=== PATIENT | female | born 1995 | race Caucasian/White ===

== ENCOUNTER 2017-02-13 21:02 | Emergency (ER) | payer BC ==
[2017-02-13] MEDS ORDERED: SODIUM CHLORIDE 0.9% 1,000 ML IV ONE (22:21)
[2017-02-13] MEDS ORDERED: PYRIDOXINE 100 MG/ML 1 ML VIAL IVP STA (22:23)
--- NOTE | 2017-02-13 22:28 | ED ---
Nausea/Vomiting/Diarrhea HPI - General Chief complaint: Nausea/Vomiting/Diarrhea Stated complaint: Nausea. 10 wks preg Time Seen by Provider: 02/13/17 21:16 Source: patient, family Mode of arrival: ambulatory Limitations: no limitations - History of Present Illness Initial comments: This patient is a 22-year-old woman who presents to be evaluated for multiple rounds of vomiting and nausea that is been going on the course of past. The patient relates that she is proximally 10 weeks now, and that over the course the past day she has not been able to keep down much in way of oral intake and this evening and tonight she has not been able keep down any fluids. Patient denies fever or chills. She denies any abdominal pain or change in bowel movements. Patient is not having any pelvic pain, vaginal bleeding or vaginal discharge. On the review of systems the patient does note some mild upper respiratory symptoms, including a mild nonproductive cough that is been going on for nearly past week. MD complaint: nausea, vomiting Onset/Timin -: days(s) Description of Vomiting: food contents Associated Abdominal Pain: No Consistency: constant Improves with: none Worsens with: none - Related Data Home Medications Medication Instructions Recorded Confirmed Bbw-Modq-Kyxff Acid 1 cap PO DAILY 02/13/17 02/13/17 [-U Capsule (formulary)] Allergies Allergy/AdvReac Type Severity Reaction Status Date / Time benzoyl peroxide Allergy Swelling/It Verified 02/13/17 21:30 tomi Review of Systems ROS Statement: Those systems with pertinent positive or pertinent negative responses have been documented in the HPI. ROS Other: All systems not noted in ROS Statement are negative. Constitutional: Denies: fever, chills, weakness Respiratory: Reports: cough (Mild nonproductive). Denies: dyspnea, wheezes Cardiovascular: Denies: chest pain, palpitations, edema, syncope Gastrointestinal: Reports: nausea, vomiting. Denies: abdominal pain, diarrhea, constipation Genitourinary: Denies: dysuria, hematuria, discharge, abnormal menses Musculoskeletal: Denies: back pain Skin: Denies: rash Neurological: Denies: headache, weakness, numbness Past Medical History Past Medical History: No Reported History History of Any Multi-Drug Resistant Organisms: None Reported Past Surgical History: No Surgical Hx Reported Past Psychological History: No Psychological Hx Reported Smoking Status: Never smoker Past Alcohol Use History: None Reported Past Drug Use History: None Reported General Exam Limitations: no limitations General appearance: alert, in no apparent distress Head exam: Present: atraumatic, normocephalic Eye exam: Present: normal appearance. Absent: scleral icterus, conjunctival injection ENT exam: Present: normal oropharynx Neck exam: Present: normal inspection, full ROM Respiratory exam: Present: normal lung sounds bilaterally. Absent: respiratory distress, wheezes, rales, rhonchi Cardiovascular Exam: Present: regular rate, normal rhythm, normal heart sounds. Absent: systolic murmur, diastolic murmur, rubs, gallop GI/Abdominal exam: Present: soft. Absent: distended, tenderness, guarding, rebound, mass Extremities exam: Present: normal inspection, normal capillary refill. Absent: pedal edema, calf tenderness Back exam: Present: normal inspection. Absent: CVA tenderness (R), CVA tenderness (L) Neurological exam: Present: alert Skin exam: Present: warm, dry, intact, normal color. Absent: rash, cyanosis, diaphoretic, erythema, petechiae, pallor, mottled Course Vital Signs 02/13/17 21:06 Temperature 99 F Pulse Rate 100 Respiratory 20 Rate Blood Pressure 129/88 O2 Sat by Pulse 99 Oximetry Medical Decision Making - Lab Data Lab Results 02/13/17 Range/Units 22:38 Urine Color Yellow Urine Appearance Cloudy H (Clear) Urine pH 5.5 (5.0-8.0) Ur Specific [place] 1.022 (1.001-1.035) Urine Protein Trace H (Negative) Urine Glucose (UA) Negative (Negative) Urine Ketones 2+ H (Negative) Urine Blood Negative (Negative) Urine Nitrite Negative (Negative) Urine Bilirubin Negative (Negative) Urine Urobilinogen <2.0 (<2.0) mg/dL Ur Leukocyte Esterase Trace H (Negative) Urine RBC 1 (0-5) /hpf Urine WBC 2 (0-5) /hpf Ur Squamous Epith Cells 10 H (0-4) /hpf Urine Mucus Many H (None) /hpf Disposition Clinical Impression: Vomiting affecting Disposition: HOME SELF-CARE Condition: Good Instructions: Acute Nausea and Vomiting (ED) Referrals: Aleksandr Case MD [Primary Care Provider] - 1-2 days
[2017-02-13 23:00] LABS: Appearance,Urine Cloudy (Clear); Bilirubin,Urine Negative (Negative); Glucose,Urine (UA) Negative (Negative); Ketones,Urine 2+ (Negative); Leukocyte Esterase,Urine Trace (Negative); Mucus,Urine Many /hpf; Nitrite,Urine Negative (Negative); PH, Urine 5.5 (5.0-8.0); Particle Count 13243; Protein,Urine Trace (Negative); RBC,Urine 1 /hpf (0-5); Specific Gravity,Urine 1.022 (1.001-1.035); Squamous Epithelial Cell,Urine 10 /hpf (0-4); UA Billing (MACRO vs. MICRO) MICRO; Urobilinogen,Urine <2.0 mg/dL (<2.0); WBC,Urine 2 /hpf (0-5)
[2017-02-14 00:10] VITALS: BP 111/56; PULSE 78; RESP 18; TEMP 98
== END 2017-02-14 00:10 | disposition home or self-care (01) ==
LOC: EC 21:02
DX: O21.9 Vomiting of pregnancy, unspecified (principal); O26.899 Other specified pregnancy related conditions, unspecified trimester; R05 Cough; Z79.899 Other long term (current) drug therapy; Z88.8 Allergy status to other drugs, medicaments and biological substances; Z3A.00 Weeks of gestation of pregnancy not specified
CPT/HCPCS: 99284 ×2; 96374 ×2; 96361 ×2; 81001; J3415

== ENCOUNTER 2017-08-21 02:46 | Inpatient (IN) | payer OTHER ==
[2017-08-21] MEDS ORDERED: LIDOCAINE 1% (PF) 10 MG/ML (30 ML SDV) SQ PRN (03:06)
[2017-08-21] MEDS ORDERED: OXYTOCIN 10 UNIT/ML 1 ML VIAL IM PRN (03:06)
[2017-08-21] MEDS ORDERED: METHYLERGONOVINE 0.2 MG/ML 1 ML AMP IM PRN (03:06)
[2017-08-21] MEDS ORDERED: CARBOPROST TROMETHAMINE 250 MCG/ML 1 ML AMP IM PRN (03:06)
[2017-08-21] MEDS ORDERED: TERBUTALINE 1 MG/ML VIAL SQ PRN (03:06)
[2017-08-21] MEDS ORDERED: OXYTOCIN 20 UNITS/1000 ML NS 1,000 ML IV SCH (03:15)
[2017-08-21] MEDS: LACTATED RINGERS 1,000 ML IV SCH ×2 (03:25→07:11)
[2017-08-21] MEDS ORDERED: BUTORPHANOL 1 MG/ML 1 ML VIAL IV PRN (03:34)
[2017-08-21 03:49] VITALS: BMI 25.3
[2017-08-21 04:30] LABS: Basophils # (A) 0.1 k/uL (0-0.2); Basophils % (A) 0 %; Eosinophils # (A) 0.2 k/uL (0-0.7); Eosinophils % (A) 1 %; HCT 33.6 % (34.0-46.0); HGB 11.3 gm/dL (11.4-16.0); Lymphocytes # (A) 2.4 k/uL (1.0-4.8); Lymphocytes % (A) 21 %; MCH 26.9 pg (25.0-35.0); MCHC 33.5 g/dL (31.0-37.0); MCV 80.4 fL (80.0-100.0); Mean Platelet Volume 7.9; Monocytes # (A) 0.9 k/uL (0-1.0); Monocytes % (A) 8 %; Neutrophils # (A) 7.6 k/uL (1.3-7.7); Neutrophils % (A) 67 %; Platelet Count 277 k/uL (150-450); RBC 4.18 m/uL (3.80-5.40); RDW 13.6 % (11.5-15.5); WBC 11.4 k/uL (3.8-10.6)
[2017-08-21] MEDS ORDERED: SODIUM CHLORIDE 0.9% 100 ML BAG ONE (06:50)
[2017-08-21] MEDS ORDERED: BUPIVACAINE (PF) 0.25% 30 ML VIAL ONE (06:50)
[2017-08-21] MEDS ORDERED: fentaNYL (PF) 50 MCG/ML 5 ML AMP ONE (06:50)
--- NOTE | 2017-08-21 09:42 | P.HPOB ---
History of Present Illness H&P Date: 08/21/17 Chief Complaint: My water broke at 2 AM This is a 22-year-old white female 1 para 0 EDC 09/07/2017 at 37-4/7 weeks' gestation. Patient presented to the hospital with complaint of her water breaking spontaneously at 2:00 this morning, clear fluid. Mild irregular uterine contractions to follow. is essentially unremarkable. She denies vaginal bleeding or fluid leakage. history significant for rubella status immune, blood type O+, group be strep cultures negative, gonorrhea and chlamydia cultures, urine culture, HIV testing, hepatitis B surface antigen all negative. One-hour Glucola 97. Past medical history is essentially unremarkable. Past surgical history negative. Medications vitamins daily. ALLERGIES include benzoyl peroxide to which reports itching and swelling. Family history is essentially negative. Social history: patient is , she has never been a smoker, she denies alcohol or drug use. On exam this is a pleasant white female, 5 foot 7 inches, 162 pounds, initial blood pressure 132/79, vital signs are stable and she is afebrile. The general physical exam is within normal limits. The cervix on admission is 3 cm dilated , 70% effaced, spontaneous amniorrhexis noted, vertex presentation, anterior, - 2 station. heart rate in the 140s with frequent accelerations consistent with reactive NST. Impression: 37-4/7 weeks intrauterine , early active labor. All signs reassuring. Plan: Oxytocin per hospital protocol. Analgesic options are offered to the patient per her request. Close maternal and surveillance. Anticipate normal spontaneous vaginal delivery. Review of Systems Negative except as in HPI Past Medical History Past Medical History: No Reported History History of Any Multi-Drug Resistant Organisms: None Reported Past Surgical History: No Surgical Hx Reported Past Anesthesia/Blood Transfusion Reactions: No Reported Reaction Past Psychological History: No Psychological Hx Reported Smoking Status: Never smoker Past Alcohol Use History: None Reported Past Drug Use History: None Reported - Past Family History Mother Family Medical History: No Reported History Medications and Allergies Home Medications Medication Instructions Recorded Confirmed Type Dup-Ntdb-Sfehp Acid 1 cap PO DAILY 02/13/17 08/21/17 History [-U Capsule (formulary)] Allergies Allergy/AdvReac Type Severity Reaction Status Date / Time benzoyl peroxide Allergy Swelling/It Verified 08/21/17 02:48 tomi Exam - Vital Signs Vital signs: Vital Signs Temp Pulse Resp BP 08/21/17 03:05 97.9 F 94 16 132/89 Intake and Output 08/20/17 08/21/17 08/21/17 22:59 06:59 14:59 Other: # Voids 1 Weight 73.482 kg See dictation under HPI please Results Result Diagrams: 08/21/17 03:30 Abnormal Lab Results - Last 24 Hours (Table) 08/21/17 Range/Units 03:30 WBC 11.4 H (3.8-10.6) k/uL Hgb 11.3 L (11.4-16.0) gm/dL Hct 33.6 L (34.0-46.0) % Assessment and Plan Plan: Oxytocin augmentation per hospital protocol. Continue close maternal and surveillance. Anticipate normal spontaneous vaginal delivery. Time with Patient: Less than 30
[2017-08-21] MEDS ORDERED: diphenhydrAMINE 50 MG/ML 1 ML VIAL IVP PRN ×2 (09:45)
[2017-08-21] MEDS ORDERED: LANOLIN CREAM 5 GM TUBE TOPICAL PRN (09:45)
[2017-08-21] MEDS ORDERED: SIMETHICONE 80 MG CHEWABLE PO PRN (09:45)
[2017-08-21] MEDS ORDERED: Acetaminophen-Codeine 300-30mg TAB PO PRN (09:45)
[2017-08-21] MEDS ORDERED: BENZOCAINE/MENTHOL SPRAY 1 GM/SPRAY AEROSOL TOPICAL PRN (09:45)
[2017-08-21] MEDS ORDERED: ZOLPIDEM 5 MG TAB PO PRN (09:45)
[2017-08-21] MEDS ORDERED: IBUPROFEN 600 MG TAB PO PRN (09:45)
[2017-08-21] MEDS ORDERED: WITCH HAZEL 1 EACH MED..PAD TOPICAL PRN (09:45)
[2017-08-21] MEDS ORDERED: HYDROCORTISONE 2.5% RECTAL CREAM 30 GM TUBE RECTAL PRN (09:45)
[2017-08-21] MEDS ORDERED: diphenhydrAMINE 25 MG CAP PO PRN (09:45)
[2017-08-21] MEDS ORDERED: ACETAMINOPHEN TAB 325 MG TAB PO PRN (09:45)
[2017-08-21] MEDS ORDERED: diphenhydrAMINE 50 MG CAP PO PRN (09:45)
--- NOTE | 2017-08-21 09:45 | P.PROBDLV ---
Vaginal Delivery Note - . Vaginal Delivery Note: This is a 22-year-old white female 1 para 0 EDC 09/07/2017 at 37-4/7 weeks' gestation. Patient presented to labor and delivery with a history of spontaneous amniorrhexis which occurred at home, clear fluid. is unremarkable, please see dictated history and physical for details. On admission patient was 3 cm dilated with spontaneous amniorrhexis noted. Oxytocin was started and titrated per hospital protocol. She progressed well through the first stage of labor, became uncomfortable and requested epidural. This was placed without difficulty per the anesthesia staff. Patient continued to labor and was judged to be completely dilated at 0850 hours. She began the second stage of labor at that time. With excellent maternal expulsive efforts ultimately the perineal body was prepped and draped in the usual sterile fashion, in the infant's head delivered occiput anterior. He restituted accordingly. There was no nuchal cord noted. The right or anterior shoulder was gently and easily delivered from underneath the pubic symphysis at which time the oropharynx, nasopharynx, and external nares were all bulb suctioned on the perineal body. Patient was officially delivered of a liveborn male infant at 0920 hours. The umbilical cord was doubly clamped and ligated, he was handed to waiting nurses for evaluation where scores of 8 and 9 at one and 5 minutes respectively were given. The placenta delivered spontaneously, it was inspected and noted to be intact with trivascular cord. It is appeared heart-shaped to inspection, but no missing cotyledons were noted. At this time the perineal body was redraped. Inspection of the cervix, vagina, perineal, periurethral and perirectal areas revealed a small first-degree perineal laceration. This was easily repaired in the usual fashion with a mewrwt-pm-yliuq suture of 3-0 Vicryl. Fundus is firm and in the midline, symmetric and 18 week size. Total estimated blood loss 300 mL's. Infant weighs 7 lbs. 10 oz. or 34 60 g. They are requesting circumcision further son.
[2017-08-21] MEDS: SENNOSIDES-DOCUSATE SODIUM 1 EACH TAB PO SCH (20:35)
[2017-08-22] MEDS: SENNOSIDES-DOCUSATE SODIUM 1 EACH TAB PO SCH (08:00)
--- NOTE | 2017-08-22 08:03 | P.DS ---
Providers Date of admission: 08/21/17 03:03 Expected date of discharge: 08/22/17 Attending physician: Connie Mariano [facility] Course: This is a 23-year-old white female 1 para 0 EDC 09/07/2017 at 37-4/7 weeks' gestation. Patient presented with spontaneous amniorrhexis which occurred at home, clear fluid. is essentially unremarkable, group B strep cultures negative, rubella status immune, blood type O positive. Please see my dictated history and physical for details. Oxytocin augmentation was started and epidural was placed per her request. She went on to deliver a liveborn male with scores of 8 and 9 at one and 5 minutes respectively. Infant weighed 7 lbs. 10 oz. or 3460 g. She did well with a small first-degree perineal laceration easily repaired, estimated blood loss 300 mL's. Please see my dictated delivery note for details. This morning the patient is doing well. She is voiding, ambulating and passing flatus without difficulty. Vital signs are stable and she is afebrile. Breast- feeding is going well. [place] circumcision has been performed. Fundus is firm and in the midline, symmetric and 18 week size. Pain is well managed with ibuprofen. Patient is being discharged home today in very good condition. She will follow- up with me in the office in 6 weeks. I have reminded her no intercourse, tampons or douching. We have briefly discussed options for contraception and we will review this further in the office. She will continue taking her vitamin daily, and use vwnt-uwu-brbkqyl ibuprofen products as needed for pain. She will call me with any fevers shakes or chills, foul smelling or copious lochia, with the passage of large blood clots, with any pain not alleviated by bqss-ads-hdonhyc meds, or indeed with any concerns. will follow-up with crew dispatcher as per recommendations.` Patient Condition at Discharge: Good Plan - Discharge Summary New Discharge Prescriptions: No Action Adi-Zqnf-Cbsvx Acid [-U Capsule (formulary)] 1 cap PO DAILY Discharge Medication List Dwf-Cqce-Ujjpz Acid [-U Capsule (formulary)] 1 cap PO DAILY 06/01 [History] Follow up Appointment(s)/Referral(s): Connie Mariano MD [Primary Care Provider] - 6 Weeks Discharge Disposition: HOME SELF-CARE
[2017-08-22 10:13] VITALS: BP 124/79; PULSE 88; RESP 18; TEMP 98.1
== END 2017-08-22 13:00 | disposition home or self-care (01) | DRG 775 ==
LOC: FBPOP 02:46 → 4FBP 03:03
PROVIDERS: ADMIT Obstetrics & Gynecology; ATTEND Obstetrics & Gynecology
PROC: 10E0XZZ Delivery of Products of Conception, External Approach (ICD-10-PCS; principal; 2017-08-21)
PROC: 0HQ9XZZ Repair Perineum Skin, External Approach (ICD-10-PCS; 2017-08-21)
PROC: 00HU33Z Insertion of Infusion Device into Spinal Canal, Percutaneous Approach (ICD-10-PCS; 2017-08-21)
PROC: 3E0R3NZ Introduction of Analgesics, Hypnotics, Sedatives into Spinal Canal, Percutaneous Approach (ICD-10-PCS; 2017-08-21)
DX: O70.0 First degree perineal laceration during delivery (principal); Z37.0 Single live birth; Z3A.37 37 weeks gestation of pregnancy; Z88.8 Allergy status to other drugs, medicaments and biological substances
CPT/HCPCS: 59025; 84112; 85025; 88307; 99213

== ENCOUNTER 2019-03-19 22:22 | Outpatient (CLI) | payer OTHER ==
[2019-03-20 00:17] VITALS: BP 129/86; PULSE 103; RESP 16; TEMP 96.3
--- NOTE | 2019-03-22 14:29 | P.MSEPDOC ---
Presenting Problems - Arrival Data Date of Arrival on Unit: 03/20/19 Time of Arrival on Unit: 22:22 Mode of Transport: Ambulatory - Complaint OB-Reason for Admission/Chief Complaint: Possible Onset of Labor Comment: Pt states contractions for the past few days, 6 minutes apart, pain 4/10. Medical History - Information : 2 Para: 1 Term: 1 : 0 Abortions: Spontaneous or Elective: 0 Number of Living Children: 1 - Gestational Age Gestational Age by EDWARD (wks/days): 36 Weeks and 4 Days - History Complications: No Care Review of Systems - Review of Systems Constitutional: No problems Breast: No problems ENT: No problems Cardiovascular: No problems Respiratory: No problems Gastrointestinal: No problems Genitourinary: No problems Musculoskeletal: No problems Neurological: No problems Skin: No problems Vital Signs - Temperature Temperature: 96.3 F Temperature Source: Temporal Artery Scan - Pulse Right Brachial Pulse Rate: 103 Pulse Assessment Method: Automatic Cuff - Respirations Respiratory Rate: 16 Oxygen Delivery Method: Room Air O2 Sat by Pulse Oximetry: 99 - Blood Pressure Right Arm Blood Pressure: 129/86 Blood Pressure Mean: 100 Blood Pressure Source: Automatic Cuff Medical Screen Scoring (Pre) - Cervical Exam Dilation: 1-3 cm = 1 Effacement: Exam Deferred Membranes: Intact - Uterine Contractions Frequency: > or = 36 weeks =2 Duration: > 40 seconds = 2 Intensity: N/A - Maternal Vital Signs Maternal Temperature: N/A Signs of Preeclampsia: N/A Maternal Respirations: N/A - Maternal Trauma Maternal Trauma: N/A - Assessment - Baby A Baseline FHR: 135 Heart Rate - NICHD Category: Category I (Normal) = 0 NST: Reactive Position: N/A Station: N/A - Total Score - Baby A Total Score - Baby A: 5 - Total Score - Baby B Total Score - Baby B: 5 - Total Score - Baby C Total Score - Baby C: 5 - Level of Risk - Baby A Level of Risk - Baby A: Low (0-5) - Level of Risk - Baby B Level of Risk - Baby B: Low (0-5) - Level of Risk - Baby C Level of Risk - Baby C: Low (0-5) Physician Notification (Pre) - Physician Notified Physician Notified Date: 03/20/19 Physician Notified Time: 23:52 - Notification Comment Comment: No cervical change, irregular contractions, pt to follow up with Dr. Mariano 03/22 Disposition - Disposition OB Disposition: Discharge to home, Written follow up instructions reviewed Discharge Date: 03/20/19 Discharge Time: 23:55 I agree with the RN Medical Screening Exam: Yes Risk & Benefit of care provided described in d/c instruction: Yes Diagnosis: FALSE LABOR BEFORE 37 COMPLETED WEEKS OF GEST, THIRD TRI
== END 2019-03-19 23:55 | disposition home or self-care (01) ==
LOC: FBPOP 22:22
PROVIDERS: ATTEND Obstetrics & Gynecology Obstetrics
DX: O47.03 False labor before 37 completed weeks of gestation, third trimester (principal); Z3A.36 36 weeks gestation of pregnancy
CPT/HCPCS: 59025; 99213

== ENCOUNTER 2019-04-03 07:23 | Inpatient (IN) | payer BC, OTHER ==
[2019-04-03] MEDS ORDERED: LIDOCAINE 0.5% (PF) 5 MG/ML (50 ML SDV) SQ PRN (08:03)
[2019-04-03] MEDS ORDERED: METHYLERGONOVINE 0.2 MG/ML 1 ML AMP IM PRN (08:03)
[2019-04-03] MEDS ORDERED: OXYTOCIN 10 UNIT/ML 1 ML VIAL IM PRN (08:03)
[2019-04-03] MEDS ORDERED: CARBOPROST TROMETHAMINE 250 MCG/ML 1 ML AMP IM PRN (08:03)
[2019-04-03] MEDS ORDERED: TERBUTALINE 1 MG/ML VIAL SQ PRN (08:03)
[2019-04-03] MEDS ORDERED: OXYTOCIN 30 UNITS/500 ML NS 30 UNIT in SALINE 1 500ML.BAG IV SCH (08:15)
[2019-04-03 08:30] LABS: Basophils # (A) 0.1 k/uL (0-0.2); Basophils % (A) 1 %; Eosinophils # (A) 0.1 k/uL (0-0.7); Eosinophils % (A) 1 %; HCT 33.9 % (34.0-46.0); HGB 11.3 gm/dL (11.4-16.0); Lymphocytes # (A) 1.9 k/uL (1.0-4.8); Lymphocytes % (A) 24 %; MCH 26.6 pg (25.0-35.0); MCHC 33.3 g/dL (31.0-37.0); MCV 79.9 fL (80.0-100.0); Mean Platelet Volume 7.5; Monocytes # (A) 0.5 k/uL (0-1.0); Monocytes % (A) 6 %; Neutrophils # (A) 5.3 k/uL (1.3-7.7); Neutrophils % (A) 67 %; Platelet Count 238 k/uL (150-450); RBC 4.25 m/uL (3.80-5.40); RDW 13.9 % (11.5-15.5)
[2019-04-03] MEDS ORDERED: ROPIVACAINE 5MG/ML 20ML VIAL ONE (08:34)
[2019-04-03] MEDS ORDERED: fentaNYL (PF) 50 MCG/ML 5 ML AMP ONE (08:34)
[2019-04-03] MEDS ORDERED: SODIUM CHLORIDE 0.9% 100 ML BAG ONE (08:34)
--- NOTE | 2019-04-03 08:40 | P.HPOB ---
History of Present Illness H&P Date: 04/03/19 Chief Complaint: Strong regular uterine contractions This is a 24-year-old white female 2 para 1001 EDC 04/13/2019 at 38-4/7 weeks' gestation. Patient presents from home with strong regular uterine contractions. She denies fluid leakage or vaginal bleeding. Fetus is been active throughout the . ALLERGIES include benzoyl peroxide to which she reports itching and swelling locally. history significant for blood type O+, rubella status immune. VDRL testing, hepatitis B surface antigen, HIV testing, group B strep cultures all negative. One-hour Glucola 83. Urine culture negative. Past medical history is essentially unremarkable. Past surgical history is negative. Current medications Colace as needed, Zofran 4 mg oral tablets as needed, vitamins daily. Family history significant for ovarian cancer in a maternal aunt. Reproductive history normal spontaneous vaginal delivery for 818 at 37 weeks gestation, 7 lbs. 10 oz. male infant. Social history patient is , she has never been a smoker, she denies alcohol or drug use. On exam this is a pleasant white female who is 5 foot 7-1/2 inches, 165 pounds, vital signs are stable including in latent blood pressure 124/78, pulse 83, respirations 18, temperature 97.8. The chest is clear in all fu. The extremities reveal no edema. The cervix is 7 centimeters dilated, 90% effaced, -1 station, vertex presentation. Artificial amniorrhexis reveals clear fluid. heart tones are consistent with reactive NST. Impression: 38-4/7 weeks intrauterine , active spontaneous labor. All signs reassuring. Plan: Patient is requesting epidural and the anesthesia team is aware. Continue close maternal and surveillance. Anticipate normal spontaneous vaginal delivery. Review of Systems Constitutional: Reports as per HPI Past Medical History Past Medical History: No Reported History History of Any Multi-Drug Resistant Organisms: None Reported Past Surgical History: No Surgical Hx Reported Past Anesthesia/Blood Transfusion Reactions: No Reported Reaction Smoking Status: Never smoker - Past Family History Mother Family Medical History: No Reported History Medications and Allergies Home Medications Medication Instructions Recorded Confirmed Type Ywl-Jgob-Hyewk Acid 1 cap PO DAILY 02/13/17 04/03/19 History [-U Capsule (formulary)] Allergies Allergy/AdvReac Type Severity Reaction Status Date / Time benzoyl peroxide Allergy Swelling/It Verified 03/19/19 22:33 tomi Exam Intake and Output 04/02/19 04/03/19 04/03/19 22:59 06:59 14:59 Other: Weight 77.111 kg See dictation under HPI please Results Result Diagrams: 04/03/19 08:10 Abnormal Lab Results - Last 24 Hours (Table) 04/03/19 Range/Units 08:10 Hgb 11.3 L (11.4-16.0) gm/dL Hct 33.9 L (34.0-46.0) % MCV 79.9 L (80.0-100.0) fL Assessment and Plan Assessment: 38-4/7 weeks intrauterine , active spontaneous labor. All signs r eassuring. Group strep cultures negative. Plan: Epidural has been ordered and will be placed. Continue close maternal and surveillance. Anticipate normal spontaneous vaginal delivery. Time with Patient: Less than 30
[2019-04-03] MEDS: LACTATED RINGERS 1,000 ML IV SCH ×2 (08:58→08:59)
[2019-04-03 09:28] VITALS: BMI 26.6
--- NOTE | 2019-04-03 10:23 | P.PROBDLV ---
Vaginal Delivery Note - . Vaginal Delivery Note: This is a 24-year-old white female 2 para 1001 EDC 04/13/2019 at 38-4/7 weeks' gestation. Patient presented in spontaneous active labor from home. Fetus has been active throughout the . is otherwise unremarkable, blood type O+, group B strep cultures negative, rubella status immune. Please see my dictated history and physical for details. Artificial amniorrhexis revealed clear fluid. Epidural was placed per the patient's request. She progressed well through the first stage of labor was judged to be completely dilated at 1001 hours. Perineal body was prepped and draped in usual sterile fashion. With excellent maternal expulsive efforts the 's head delivered occiput anterior and he restituted accordingly. There was no nuchal cord noted. The left or anterior shoulder was gently delivered from underneath the pubic symphysis at which time the oropharynx, nasopharynx, and external nares were bulb suctioned on the perineal body. Patient was officially delivered of a liveborn male at 1005 hours. Umbilical cord was doubly clamped and ligated, he was handed to waiting nurses for evaluation where scores of 8 and 9 at one and 5 minutes respectively were given. The placenta delivered spontaneously, it was inspected and noted to be intact with trivascular cord at 1008 hours. Uterus is massaged, is firm and midline, 18 week size. Careful inspection now of the perineal body, cervix, vagina, periurethral, and perirectal areas reveals no lacerations and no defects. weighs 8 lbs. 13 oz. or 4005 g. The patient and her are requesting circumcision further son. Total estimated blood loss 250 mL's. All sponge needle and instrument counts are correct at the end of this procedure. Patient and her family are allowed to begin the bonding experience in the LDR.
[2019-04-03] MEDS ORDERED: ZOLPIDEM 5 MG TAB PO PRN (10:24)
[2019-04-03] MEDS ORDERED: HYDROCORTISONE 2.5% RECTAL CREAM 30 GM TUBE RECTAL PRN (10:24)
[2019-04-03] MEDS ORDERED: ACETAMINOPHEN TAB 325 MG TAB PO PRN (10:24)
[2019-04-03] MEDS ORDERED: diphenhydrAMINE 50 MG/ML 1 ML VIAL IVP PRN ×2 (10:24)
[2019-04-03] MEDS ORDERED: BENZOCAINE/MENTHOL SPRAY 1 GM/SPRAY AEROSOL TOPICAL PRN (10:24)
[2019-04-03] MEDS ORDERED: SIMETHICONE 80 MG CHEWABLE PO PRN (10:24)
[2019-04-03] MEDS ORDERED: LANOLIN CREAM 5 GM TUBE TOPICAL PRN (10:24)
[2019-04-03] MEDS ORDERED: diphenhydrAMINE 50 MG CAP PO PRN (10:24)
[2019-04-03] MEDS ORDERED: diphenhydrAMINE 25 MG CAP PO PRN (10:24)
[2019-04-03] MEDS ORDERED: WITCH HAZEL 1 EACH MED..PAD TOPICAL PRN (10:24)
[2019-04-03] MEDS ORDERED: OXYTOCIN 20 UNITS/1000 ML NS 1,000 ML IV SCH (10:30)
[2019-04-03] MEDS: IBUPROFEN 600 MG TAB PO PRN ×2 (13:21→20:12)
[2019-04-03] MEDS: SENNOSIDES-DOCUSATE SODIUM 1 EACH TAB PO SCH (20:08)
[2019-04-04 05:51] LABS: Basophils # (A) 0.1 k/uL (0-0.2); Basophils % (A) 0 %; Eosinophils # (A) 0.1 k/uL (0-0.7); Eosinophils % (A) 1 %; HCT 32.7 % (34.0-46.0); HGB 10.7 gm/dL (11.4-16.0); Lymphocytes % (A) 15 %; MCH 26.6 pg (25.0-35.0); MCHC 32.7 g/dL (31.0-37.0); MCV 81.1 fL (80.0-100.0); Mean Platelet Volume 7.6; Monocytes # (A) 0.7 k/uL (0-1.0); Monocytes % (A) 6 %; Neutrophils % (A) 76 %; Platelet Count 210 k/uL (150-450); RBC 4.03 m/uL (3.80-5.40); WBC 13.2 k/uL (3.8-10.6)
--- NOTE | 2019-04-04 08:04 | P.DS ---
Providers Date of admission: 04/03/19 07:45 Expected date of discharge: 04/04/19 Attending physician: Connie Mariano Primary care physician: Stated None Hospital Course: This is a 24-year-old white female 2 para 1001 EDC 04/13/2019 at 38-4/7 weeks' gestation. Patient presented yesterday in active spontaneous labor. Urgency remarkable for group B strep cultures negative, rubella status immune, blood type O positive. Please see dictated history and physical for details. Epidural was placed per patient's request. She went on to swiftly deliver a liveborn male infant with scores of 8 and 9 at one and [facility] Infant weight 8 lbs. 13 oz. or 4005 g. Estimated blood loss recorded of 250 mL's. No perineal lacerations or defects were noted. Please see dictated delivery note for details. This morning the patient is doing well. She is voiding, ambulating and passing flatus without difficulty. Vital signs are stable and she is afebrile. Fundus is firm and in the midline, symmetric and 18 week size. Extremities are negative for edema. Breast-feeding is going well. Circumcision has been performed. Patient is judged to be in very good condition for discharge home. She will follow-up with me in the office in 6 weeks. We have reviewed options for contraception and she will consider this with her . No intercourse tampons or douching. Continue taking her vitamin daily. Ov gm-jyi-alqsgjh Advil or Aleve or Motrin as needed for pain. Call with any fevers shakes or chills, foul smelling or copious lochia, with the passage of large blood clots, with any pain not alleviated by sqcp-kit-tcooqee products, or indeed with any concerns. Patient Condition at Discharge: Good Plan - Discharge Summary Discharge Rx Participant: No New Discharge Prescriptions: No Action Mtk-Itcp-Dwrhl Acid [-U Capsule (formulary)] 1 cap PO DAILY Discharge Medication List Dbt-Snub-Iaigf Acid [-U Capsule (formulary)] 1 cap PO DAILY 02/13/17 [History] Follow up Appointment(s)/Referral(s): Connie Mariano MD [STAFF PHYSICIAN] - 6 Weeks Discharge Disposition: HOME SELF-CARE
[2019-04-04] MEDS: IBUPROFEN 600 MG TAB PO PRN ×3 (08:24→21:29)
[2019-04-04] MEDS: SENNOSIDES-DOCUSATE SODIUM 1 EACH TAB PO SCH ×2 (08:25→22:47)
[2019-04-05] MEDS: IBUPROFEN 600 MG TAB PO PRN (08:38)
[2019-04-05] MEDS: SENNOSIDES-DOCUSATE SODIUM 1 EACH TAB PO SCH (09:49)
[2019-04-05 09:53] VITALS: BP 120/76; PULSE 86; RESP 15; TEMP 98.3
== END 2019-04-05 09:45 | disposition home or self-care (01) | DRG 807 ==
LOC: FBPOP 07:23 → 4FBP 07:45
PROVIDERS: ADMIT Obstetrics & Gynecology; ATTEND Obstetrics & Gynecology
PROC: 10E0XZZ Delivery of Products of Conception, External Approach (ICD-10-PCS; principal; 2019-04-03)
PROC: 00HU33Z Insertion of Infusion Device into Spinal Canal, Percutaneous Approach (ICD-10-PCS; 2019-04-03)
PROC: 3E0R3BZ Introduction of Anesthetic Agent into Spinal Canal, Percutaneous Approach (ICD-10-PCS; 2019-04-03)
DX: O80 Encounter for full-term uncomplicated delivery (principal); Z37.0 Single live birth; Z3A.38 38 weeks gestation of pregnancy; Z80.41 Family history of malignant neoplasm of ovary
CPT/HCPCS: 85025; 86803; 86850; 86900; 86901

== ENCOUNTER 2020-05-21 20:25 | Outpatient (CLI) | payer SELFPAY ==
[2020-05-21 20:48] VITALS: RESP 16; TEMP 97.9
[2020-05-21 22:40] VITALS: BP 122/83; PULSE 101
--- NOTE | 2020-06-28 10:20 | P.MSEPDOC ---
Presenting Problems - Arrival Data Date of Arrival on Unit: 05/21/20 Time of Arrival on Unit: 20:25 Mode of Transport: Ambulatory - Complaint OB-Reason for Admission/Chief Complaint: Possible Onset of Labor Comment: 1830 contractions 7 min apart Medical History - Information : 3 Para: 2 Term: 2 : 0 Abortions: Spontaneous or Elective: 0 Number of Living Children: 2 - Gestational Age Gestational Age by EDWARD (wks/days): 37 Weeks and 4 Days Review of Systems - Review of Systems Constitutional: No problems Breast: No problems ENT: No problems Cardiovascular: No problems Respiratory: No problems Gastrointestinal: No problems Genitourinary: No problems Musculoskeletal: No problems Neurological: No problems Skin: No problems Vital Signs - Temperature Temperature: 97.9 F Temperature Source: Temporal Artery Scan - Pulse Right Brachial Pulse Rate: 101 Pulse Assessment Method: Automatic Cuff - Respirations Respiratory Rate: 16 Oxygen Delivery Method: Room Air O2 Sat by Pulse Oximetry: 99 - Blood Pressure Right Arm Blood Pressure: 122/83 Blood Pressure Mean: 96 Blood Pressure Source: Automatic Cuff Medical Screen Scoring (Pre) - Cervical Exam Dilation: 1-3 cm = 1 Membranes: Intact - Uterine Contractions Frequency: > 5 minutes apart = 1 Duration: > 40 seconds = 2 - Maternal Vital Signs Maternal Temperature: N/A Signs of Preeclampsia: N/A Maternal Respirations: N/A - Maternal Trauma Maternal Trauma: N/A - Assessment - Baby A Baseline FHR: 135 Heart Rate - NICHD Category: Category I (Normal) = 0 NST: Reactive - Total Score - Baby A Total Score - Baby A: 4 - Total Score - Baby B Total Score - Baby B: 4 - Total Score - Baby C Total Score - Baby C: 4 - Level of Risk - Baby A Level of Risk - Baby A: Low (0-5) - Level of Risk - Baby B Level of Risk - Baby B: Low (0-5) - Level of Risk - Baby C Level of Risk - Baby C: Low (0-5) Physician Notification (Pre) - Physician Notified Physician Notified Date: 05/21/20 New Order Received: Yes (DC home) Disposition - Disposition OB Disposition: Discharge to home, Written follow up instructions reviewed Discharge Date: 05/21/20 Discharge Time: 22:10 I agree with the RN Medical Screening Exam: Yes Physician's MSE Comment: I have neither seen nor examined the patient. Case reviewed; plan agreed upon as documented in EMR&OBIX.: Yes Diagnosis: RELATED CONDITIONS, UNSPECIFIED, THIRD TRIMESTER
== END 2020-05-21 22:10 | disposition home or self-care (01) ==
LOC: FBPOP 20:25
PROVIDERS: ATTEND Obstetrics & Gynecology
DX: O26.93 Pregnancy related conditions, unspecified, third trimester (principal); Z3A.37 37 weeks gestation of pregnancy
CPT/HCPCS: 59025; 99213

== ENCOUNTER 2020-05-22 18:08 | Inpatient (IN) | payer OTHER ==
[2020-05-22] MEDS ORDERED: CARBOPROST TROMETHAMINE 250 MCG/ML 1 ML AMP IM PRN (18:37)
[2020-05-22] MEDS ORDERED: OXYTOCIN 10 UNIT/ML 1 ML VIAL IM PRN (18:37)
[2020-05-22] MEDS ORDERED: TERBUTALINE 1 MG/ML VIAL SQ PRN (18:37)
[2020-05-22] MEDS ORDERED: LIDOCAINE 0.5% (PF) 5 MG/ML (50 ML SDV) SQ PRN (18:37)
[2020-05-22] MEDS ORDERED: METHYLERGONOVINE 0.2 MG/ML 1 ML AMP IM PRN (18:37)
[2020-05-22] MEDS ORDERED: OXYTOCIN 30 UNITS/500 ML NS 30 UNIT in SALINE 1 500ML.BAG IV SCH (18:45)
[2020-05-22 18:55] LABS: Basophils % (A) 0 %; Eosinophils % (A) 1 %; HCT 31.7 % (34.0-46.0); HGB 10.3 gm/dL (11.4-16.0); Hypochromasia Slight; Lymphocytes # (A) 1.6 k/uL (1.0-4.8); Lymphocytes % (A) 19 %; MCH 24.7 pg (25.0-35.0); MCHC 32.5 g/dL (31.0-37.0); Mean Platelet Volume 8.7; Monocytes # (A) 0.6 k/uL (0-1.0); Monocytes % (A) 7 %; Neutrophils # (A) 5.9 k/uL (1.3-7.7); Neutrophils % (A) 70 %; Platelet Count 256 k/uL (150-450); RBC 4.17 m/uL (3.80-5.40); WBC 8.4 k/uL (3.8-10.6)
[2020-05-22] MEDS ORDERED: SODIUM CHLORIDE 0.9% 100 ML BAG ONE (19:06)
[2020-05-22] MEDS ORDERED: ROPIVACAINE 5MG/ML 20ML VIAL ONE (19:06)
[2020-05-22] MEDS ORDERED: fentaNYL (PF) 50 MCG/ML 5 ML AMP ONE (19:06)
--- NOTE | 2020-05-22 19:29 | P.HPOB ---
History of Present Illness H&P Date: 05/22/20 Chief Complaint: Strong regular uterine contractions This is a 25-year-old white female 3 para 2002 EDC 06/07/2020 at 37-5/7 weeks' gestation. Patient presents tonight with the complaint of strong regular uterine contractions. She denies fluid leakage or vaginal bleeding. Fetus is been active throughout the . She was checked in the office today and noted to be 4 cm dilated. Past medical history is significant for tailbone problems. Past surgical history is negative. Current medications Zofran 4 mg as needed, vitamin daily, Unisom as nee ded. Family history significant for ovarian cancer. Reproductive history 2 prior vaginal deliveries, both male fetuses, unremarkable pregnancies and deliveries. Social history patient is , she has never been a smoker, she denies alcohol or drug use. history significant for blood type O+, rubella status immune. VDRL testing, urine culture, hepatitis B surface antigen, HIV testing, gonorrhea and chlamydia cultures, group B strep cultures all negative. One-hour Glucola 84. On exam patient is 5 foot 7 inches, 169 pounds, vital signs are stable and she is afebrile. General physical exam is within normal limits. Cervix is 5 cm dilated, 70% effaced, -1 station, vertex presentation. Artificial amniorrhexis reveals clear fluid. heart rate is consistent with reactive NST. Uterine contractions are occurring approximately every 7-8 minutes apart. Epidural has been placed per her request. Impression: 37-5/7 weeks intrauterine , active labor. All signs r eassuring. Plan: Oxytocin as needed pending clinical progress. Close maternal and surveillance. Anticipate normal spontaneous vaginal delivery. Review of Systems As per HPI please Constitutional: Reports as per HPI Past Medical History Past Medical History: No Reported History History of Any Multi-Drug Resistant Organisms: None Reported Past Surgical History: No Surgical Hx Reported Past Anesthesia/Blood Transfusion Reactions: No Reported Reaction Smoking Status: Never smoker - Past Family History Mother Family Medical History: No Reported History Medications and Allergies Home Medications Medication Instructions Recorded Confirmed Type Pru-Juqu-Ybtwd Acid 1 cap PO DAILY 02/13/17 05/22/20 History [-U Capsule (formulary)] Doxylamine Succinate [Unisom] 1 tab PO HS 05/22/20 05/22/20 History Allergies Allergy/AdvReac Type Severity Reaction Status Date / Time benzoyl peroxide Allergy Swelling/It Verified 05/22/20 18:18 tomi Exam Intake and Output 05/22/20 05/22/20 05/22/20 06:59 14:59 22:59 Other: Weight 76.657 kg As per HPI Results Result Diagrams: 05/22/20 18:42 Abnormal Lab Results - Last 24 Hours (Table) 05/22/20 Range/Units 18:42 Hgb 10.3 L (11.4-16.0) gm/dL Hct 31.7 L (34.0-46.0) % MCV 76.0 L (80.0-100.0) fL MCH 24.7 L (25.0-35.0) pg Assessment and Plan Assessment: 37-5/7 weeks intrauterine , early active labor. All signs reassuring. Plan: Continue close maternal and surveillance. Consider oxytocin pending clinical progress. Anticipate normal spontaneous vaginal delivery. Time with Patient: Less than 30
[2020-05-22] MEDS: LACTATED RINGERS 1,000 ML IV SCH (19:30)
[2020-05-22] MEDS ORDERED: diphenhydrAMINE 50 MG CAP PO PRN (21:16)
[2020-05-22] MEDS ORDERED: ACETAMINOPHEN TAB 325 MG TAB PO PRN (21:16)
[2020-05-22] MEDS ORDERED: diphenhydrAMINE 50 MG/ML 1 ML VIAL IVP PRN ×2 (21:16)
[2020-05-22] MEDS ORDERED: LANOLIN CREAM 5 GM TUBE TOPICAL PRN (21:16)
[2020-05-22] MEDS ORDERED: BENZOCAINE/MENTHOL SPRAY 1 GM/SPRAY AEROSOL TOPICAL PRN (21:16)
[2020-05-22] MEDS ORDERED: SIMETHICONE 80 MG CHEWABLE PO PRN (21:16)
[2020-05-22] MEDS ORDERED: HYDROCORTISONE 2.5% RECTAL CREAM 30 GM TUBE RECTAL PRN (21:16)
[2020-05-22] MEDS ORDERED: ZOLPIDEM 5 MG TAB PO PRN (21:16)
[2020-05-22] MEDS ORDERED: diphenhydrAMINE 25 MG CAP PO PRN (21:16)
--- NOTE | 2020-05-22 21:16 | P.PROBDLV ---
Vaginal Delivery Note - . Vaginal Delivery Note: This is a 25-year-old white female 3 para 2001 EDC 06/07/2020 at 37-5/7 weeks' gestation. Patient presented with strong uterine contractions from home, every 8-10 minutes. Fetus active throughout the . Group B strep cultures negative. Blood pressure 132/80 on admission. Please see dictated history and physical for details. Artificial amniorrhexis revealed clear fluid, patient was 5 cm 70% -2 station. Epidural was placed per her request. Uterine contractions spaced out and therefore small amount of oxytocin augmentation was started. Patient progressed well and became completely dilated at 2055 hours. Perineal body was prepped and draped in usual sterile fashion. Head delivered occiput anterior and restituted accordingly. There was no nuchal cord noted. The right or anterior shoulder was delivered from underneath the pubic symphysis at which time the oropharynx, nasopharynx, and external nares were all bulb suctioned on the perineal body. Patient was officially delivered of a liveborn female infant at 2058 hours. weighed 7 lbs. 1 oz. or 3190 g. Placenta delivered spontaneously, it was inspected and noted to be intact with trivascular cord at 2100 hrs. Careful inspection of the cervix, vagina, perineum, periurethral, and perirectal areas revealed no lacerations and no defects. Fundus is firm and in the midline, symmetric and 18 week size upon completion of delivery. All sponge needle and enhancement counts are correct at the end of the procedure. Total estimated blood loss 200 mL's. Patient and her are allowed to begin the bonding experience in the LDR.
[2020-05-22] MEDS: IBUPROFEN 600 MG TAB PO PRN (23:02)
[2020-05-23] MEDS: IBUPROFEN 600 MG TAB PO PRN ×3 (07:08→19:57)
[2020-05-23 07:19] LABS: Basophils # (A) 0.1 k/uL (0-0.2); Basophils % (A) 1 %; Eosinophils # (A) 0.1 k/uL (0-0.7); Eosinophils % (A) 1 %; HCT 29.4 % (34.0-46.0); HGB 9.7 gm/dL (11.4-16.0); Hypochromasia Slight; Lymphocytes % (A) 19 %; MCH 25.5 pg (25.0-35.0); MCV 77.4 fL (80.0-100.0); Mean Platelet Volume 8.7; Monocytes # (A) 0.7 k/uL (0-1.0); Monocytes % (A) 7 %; Neutrophils # (A) 7.6 k/uL (1.3-7.7); Neutrophils % (A) 70 %; Platelet Count 199 k/uL (150-450); RDW 14.1 % (11.5-15.5); WBC 10.9 k/uL (3.8-10.6)
--- NOTE | 2020-05-23 09:21 | P.DS ---
Providers Date of admission: 05/22/20 18:37 Expected date of discharge: 05/23/20 Attending physician: Connie Mariano Primary care physician: Stated None Hospital Course: This is a 25-year-old white female 3 para 2001 EDC 06/07/2020 at 37-5/7 weeks' gestation. Patient presented in active spontaneous labor. remarkable for negative group B strep cultures, blood type O positive, rubella status immune. Please see dictated history and physical for details. Artificial amniorrhexis revealed clear fluid. Epidural was placed per her request. She went on to deliver vaginally a liveborn female infant with scores of 8 and 9 at one and 5 minutes respectively. weighed 3190 g or 7 lbs. 1 oz. Estimated blood loss 200 mL's. Intact perineal body. Please see dictated delivery note for details. Today the patient and her are both doing well. Patient is voiding, ambulating, passing flatus without difficulty. Vital signs are stable and she is afebrile. Fundus is firm and in the midline, symmetric and 18 week size. Extremities are negative for edema. [place] infant is doing well. Patient is judged to be in very good condition for discharge home. Breasts are not engorged. Patient will follow-up with me in the office in 6 weeks. She is reminded no intercourse, tampons or douching. She will use [id number] Advil or Aleve, or Motrin as needed for pain. She will call with any fevers shakes or chills, foul smelling or copious lochia, with the passage of large blood clots, with any pain not alleviated by [id number] products, or indeed with any concerns. Assessment: Doing well day #1 Patient Condition at Discharge: Good Plan - Discharge Summary Discharge Rx Participant: No New Discharge Prescriptions: No Action Jom-Sime-Mdcmn Acid [-U Capsule (formulary)] 1 cap PO DAILY Doxylamine Succinate [Unisom] 1 tab PO HS Discharge Medication List Omq-Udhz-Bazxv Acid [-U Capsule (formulary)] 1 cap PO DAILY 02/13/17 [History] Doxylamine Succinate [Unisom] 1 tab PO HS 05/22/20 [History] Follow up Appointment(s)/Referral(s): Connie Mariano MD [STAFF PHYSICIAN] - 6 Weeks
[2020-05-23 09:31] VITALS: RESP 16
[2020-05-23] MEDS: SENNOSIDES-DOCUSATE SODIUM 1 EACH TAB PO SCH (21:00)
[2020-05-24] MEDS: SENNOSIDES-DOCUSATE SODIUM 1 EACH TAB PO SCH (07:53)
[2020-05-24] MEDS: IBUPROFEN 600 MG TAB PO PRN (07:53)
[2020-05-24 08:25] VITALS: BP 123/83; PULSE 89; TEMP 98.1
[2020-05-24] MEDS: LACTATED RINGERS 1,000 ML IV SCH (08:27)
== END 2020-05-24 15:15 | disposition home or self-care (01) | DRG 807 ==
LOC: FBPOP 18:08 → 4FBP 18:37
PROVIDERS: ADMIT Obstetrics & Gynecology; ATTEND Obstetrics & Gynecology
PROC: 10E0XZZ Delivery of Products of Conception, External Approach (ICD-10-PCS; principal; 2020-05-22)
PROC: 00HU33Z Insertion of Infusion Device into Spinal Canal, Percutaneous Approach (ICD-10-PCS; principal; 2020-05-22)
PROC: 3E0R3NZ Introduction of Analgesics, Hypnotics, Sedatives into Spinal Canal, Percutaneous Approach (ICD-10-PCS; principal; 2020-05-22)
PROC: 10907ZC Drainage of Amniotic Fluid, Therapeutic from Products of Conception, Via Natural or Artificial Opening (ICD-10-PCS; principal; 2020-05-22)
DX: O80 Encounter for full-term uncomplicated delivery (principal); Z37.0 Single live birth; Z3A.37 37 weeks gestation of pregnancy; Z80.41 Family history of malignant neoplasm of ovary; Z88.8 Allergy status to other drugs, medicaments and biological substances
CPT/HCPCS: 59025; 85025; 86850; 86900; 86901; 99213